=== PATIENT | female | born 1940 | race Caucasian/White ===

== ENCOUNTER 2018-10-18 17:15 | Emergency (ER) | payer OTHER ==
[2018-10-18 17:16] VITALS: BMI 24.0
--- NOTE | 2018-10-18 18:14 | C.PDOC ---
History Of Present Illness 78 y/o F c PMHx HTN p/w back pain x 5 days. Patient was cleaning home, moving about, had sudden pain in L lower back that shoots down L leg. States has had similar pain in the past but typically resolves with acetaminophen. Patient denies fever, dysuria, vomiting. Time Seen by Provider: 10/18/18 17:55 Chief Complaint (Nursing): Groin Pain Past Medical History Vital Signs: Last Vital Signs Temp 97.1 F L 10/18/18 17:39 Pulse 74 10/18/18 17:39 Resp 21 10/18/18 17:39 BP 184/100 H 10/18/18 17:39 Pulse Ox 97 10/18/18 17:39 - Medical History PMH: Asthma, Depression (15-20 years old), Diverticulitis, Gastritis, HTN Denies: Chronic Kidney Disease Surgical History: Pacemaker Family History: States: Unknown Family Hx - Social History Hx Tobacco Use: No Hx Alcohol Use: No Hx Substance Use: No - Immunization History Hx Tetanus Toxoid Vaccination: No Hx Influenza Vaccination: No Hx Pneumococcal Vaccination: No Review Of Systems Except As Marked, All Systems Reviewed And Found Negative. Constitutional: Negative for: Fever Cardiovascular: Negative for: Chest Pain Physical Exam - Physical Exam Additional Physical Exam Comments: Constitutional: Appears uncomfortable secondary to pain. Head: Normocephalic. Atraumatic. Eyes: PERRL. ENT: Moist mucous membranes. Neck: Supple. Cardiovascular: Regular rate. Radial pulse 2+ bilaterally. Chest: No tenderness. Respiratory: Clear to auscultation bilaterally. GI: Soft. Nontender. Nondistended. Back: No CVA tenderness. No midline tenderness. Musculoskeletal: No tenderness or swelling of extremities. Skin: No rash. Neurologic: Alert, no focal deficit. ED Course And Treatment O2 Sat by Pulse Oximetry: 97 Medical Decision Making Medical Decision Making: Declines medication that "makes you drowsy." Toradol IM administered. XR no fracture. Patient feels better. Will discharge, f/u PMD, return to ED for worsening pain, inability to walk, urinary or bowel changes, numbness or motor weakness. Disposition - Disposition Disposition: HOME/ ROUTINE Disposition Time: 20:27 Condition: STABLE Prescriptions: Famotidine [Pepcid] 1 tab PO BID #14 tab Ibuprofen [Motrin] 600 mg PO Q6 #25 tab Instructions: Sciatica (DC) Forms: [employer] (Scottish) - Clinical Impression Clinical Impression: Low back pain
[2018-10-18 20:37] VITALS: BP 186/80; PULSE 85; RESP 18; TEMP 98.4; O2SAT 99
--- NOTE | 2018-10-19 13:07 | RAD ---
Date of service: 10/18/2018 PROCEDURE: Radiographs of the Lumbar Spine. HISTORY: back pain COMPARISON: Correlations made to CT scan of the abdomen pelvis dated 03/01/2015. FINDINGS: BONES: Lumbar levoscoliosis centered at L1-2. No listhesis. Grade 1 anterolisthesis of L4 on L5. DISC SPACES: Multilevel disc space narrowing. OTHER FINDINGS: Surgical material in the central pelvis. IMPRESSION: No acute fracture. Multilevel degenerative changes.
== END 2018-10-18 20:37 | disposition home or self-care (01) ==
LOC: C.ER 17:15
DX: M54.5 Low back pain (principal); I10 Essential (primary) hypertension
CPT/HCPCS: 72100; 96372; 99284; J1885